=== PATIENT | male | born 1965 | race African-American/Black ===

== ENCOUNTER 2022-01-06 11:31 | Emergency (ER) | payer OTHER ==
[~2022-01-06] VITALS: Ht 182.9 cm; Wt 100.0 kg
[2022-01-06] MEDS ORDERED: NITROGLYCERIN 0.2MG/HR TOPICAL PATCH TD ONE (12:30)
[2022-01-06] MEDS ORDERED: ASPirin 81 mg TAB PO ONE (12:30)
[2022-01-06] MEDS ORDERED: MORPHINE SULFATE 4 MG/ML SYR/VIAL IV ONE (12:30)
[2022-01-06] MEDS ORDERED: ONDANSETRON HCL 4 MG/2 ML VIAL IV ONE (12:30)
[2022-01-06] MEDS ORDERED: SODIUM CHLORIDE 0.9% 1,000 ML IV ONE (12:30)
[2022-01-06 13:16] LABS: Basophils # (auto) 0 10 ^3/uL (0-0.2); Eosinophils # (auto) 0 10 ^3/uL (0-0.8); Lymphocytes # (auto) 1.4 10 ^3/uL (0.4-5.4); Monocytes # (auto) 1.1 10 ^3/uL (0-1.3)
[2022-01-06 13:17] LABS: Basophils % (auto) 0.3 % (0.0-2.0); Eosinophils % (auto) 0.2 % (0.0-7.0); Hematocrit 54.8 % (41.0-53.0); Hemoglobin 17.9 g/dL (13.5-17.5); Lymphocytes % (auto) 15.7 % (10.0-50.0); Mean Corpuscular Hgb Conc. 32.6 g/dL (32.0-36.0); Monocytes % (auto) 12.1 % (0.0-12.0); Neutrophils # (auto) 6.3 10 ^3/uL (1.6-8.6); Neutrophils % (auto) 71.7 % (37.0-80.0); Nucleated Red Blood Cells % 0.1 %; Red Blood Cells 6.16 10^6/uL (4.5-5.90); Red Cell Distribution Width 15.7 % (11.8-14.3); White Blood Cell 8.8 10^3/uL (4.4-10.8)
[2022-01-06 13:33] LABS: Albumin 2.9 g/dL (3.4-5.0); BUN/Creatinine Ratio 12.9; Calcium 8.6 mg/dL (8.5-10.1); Magnesium 2.6 mg/dL (1.6-2.6); Potassium 3.9 mmol/L (3.5-5.1)
[2022-01-06 13:36] LABS: Total Protein 7.1 g/dL (6.4-8.2)
[2022-01-06 13:38] LABS: INR 1.08 (0.9-1.15); Partial Thromboplastin Time 30.9 sec (24.6-33.4)
[2022-01-06] MEDS ORDERED: IOHEXOL 350 MG/ML 100ML IJ ONE (15:14)
[2022-01-06] MEDS ORDERED: AZITHROMYCIN 500MG/ 250ML 250 ML IV ONE (17:30)
[2022-01-06] MEDS ORDERED: cefTRIAXone 1GM/50ML D5W 50 ML IV ONE (17:30)
[2022-01-06] MEDS ORDERED: ACETAMINOPHEN 325 MG TAB PO ONE (17:30)
[2022-01-07 00:23] VITALS: BP 100/47
== END 2022-01-07 00:35 | disposition short-term general hospital (02) ==
LOC: ER 11:31 → EDBD 11:31 → ER 01-07 00:35
DX: R07.89 Other chest pain (principal); J18.9 Pneumonia, unspecified organism; R79.1 Abnormal coagulation profile; R91.8 Other nonspecific abnormal finding of lung field; E11.9 Type 2 diabetes mellitus without complications; I10 Essential (primary) hypertension; E78.5 Hyperlipidemia, unspecified; I25.2 Old myocardial infarction; Z86.73 Personal history of transient ischemic attack (TIA), and cerebral infarction without residual deficits; Z20.822 Contact with and (suspected) exposure to COVID-19
CPT/HCPCS: 36415; 71046; 71275; 80053; 83735; 83880; 84484; 85025; 85379; 85610; 85730; 87426; 87804; 93005; 96365; 96366; 96367; 96375; 99285; J0456; J0696; J2270; J2405; J7030; Q9967